=== PATIENT | female | born 1945 ===

== ENCOUNTER 2018-05-06 21:25 | Emergency (ER) | payer BC ==
--- NOTE | 2018-05-06 21:28 | UC ---
Skin Complaint HPI - HPI Summary HPI Summary: This AM her own cat bit her L hand after playing too aggressively. There was mild pain this AM but by the evening there was redness, pain at base of L thumb as well as swelling. - History of Current Complaint Chief Complaint: UCSkin Time Seen by Provider: 05/06/18 21:26 Stated Complaint: CAT BITE Hx Obtained From: Patient ?: No Onset/Duration: Sudden Onset Skin Exposure Onset/Duration: Hours Ago Onset Severity: Mild Current Severity: Moderate Location: Discrete Character: Swelling, Pain, Redness, Painful Aggravating Factor(s): Touch Alleviating Factor(s): Nothing - Allergy/Home Medications Allergies/Adverse Reactions: Allergies Allergy/AdvReac Type Severity Reaction Status Date / Time No Known Allergies Allergy Verified 05/06/18 21:36 PMH/Surg Hx/FS Hx/Imm Hx Previously Healthy: Yes - Surgical History Surgical History: None - Family History Known Family History: Positive: None - Social History Alcohol Use: None Substance Use Type: None Smoking Status (MU): Never Smoked Tobacco Review of Systems All Other Systems Reviewed And Are Negative: Yes Constitutional: Positive: Negative Skin: Positive: Other - redness Musculoskeletal: Positive: Arthralgia, Edema Physical Exam Triage Information Reviewed: Yes Appearance: Well-Appearing Neurological: Positive: Alert Skin: Positive: Significant Lesion(s) - puncture wound from cat bite at L base of thumb. Thenar swelling, redness, tenderness. SILO MAN intact, good ROM. Course/Dx - Course Course Of Treatment: Cat bite on L base of thumb/hand which is indication for antibx. Exam significant for swelling, tenderness, puncture wound erythema. No crush injury, no deep puncture wounds, not a late presentation. good vitals. - Differential Diagnoses - Skin Complaint Differential Diagnoses: Abscess, Allergic Reaction, Impetigo, Other - Diagnoses Provider Diagnosis: Animal bite, Pain of left thumb Discharge - Sign-Out/Discharge Documenting (check all that apply): Patient Departure All imaging exams completed and their final reports reviewed: No Studies - Discharge Plan Condition: Good Disposition: HOME Prescriptions: Amoxicillin/Clavulanate TAB* [Augmentin TAB 875*] 875 mg PO BID 7 Days #13 tab Patient Education Materials: Animal Bite (ED) Referrals: No Primary Care Phys,NOPCP [Primary Care Provider] - Additional Instructions: If not improving after antibiotics please follow up with your pcp. - Billing Disposition and Condition Condition: GOOD Disposition: Home
[2018-05-06] MEDS ORDERED: Amoxicillin/Clavulanate TAB* 875 MG PO ONE (21:36)
[2018-05-06 21:40] VITALS: BP 142/73
== END 2018-05-06 21:50 | disposition home or self-care (01) ==
LOC: UCEAST 21:25
DX: S61.052A Open bite of left thumb without damage to nail, initial encounter (principal); W55.01XA Bitten by cat, initial encounter; Y92.9 Unspecified place or not applicable
CPT/HCPCS: 99212; A9270-GY; G0463

== ENCOUNTER 2018-09-08 07:53 | Day surgery (SDC) | payer BC ==
[~2018-09-08 07:53] MED LIST: Acetaminophen TAB* 325 MG PO PRN; Buffered Lidocaine 1% SYRIN* 1 ML/SYRINGE INTRADERM ONE
[2018-09-08] MEDS ORDERED: Midazolam* 1 MG/ML 2 ML VIAL (2 MG) ONE (10:09)
[2018-09-08 10:46] VITALS: BP 118/68
--- NOTE | 2018-09-08 12:52 | OP ---
OPERATIVE NOTE: DATE OF OPERATION: 09/08/18 DATE OF : 41 SURGEON: Jared Hernandez M.D. PREOPERATIVE DIAGNOSIS: Cataract, right eye. POSTOPERATIVE DIAGNOSIS: Cataract, right eye. OPERATIVE PROCEDURE: Extracapsular cataract extraction with intraocular lens implant, right eye. DESCRIPTION OF PROCEDURE: The patient was brought to the operating room after being given 1/2% Alcai ne with epinephrine drops in the preoperative area. The eye was prepped and draped in the usual ster ile fashion. Sterile drape and eyelid speculum were placed. Again, topical 1/2% Alcaine with epinep hrine was given. A paracentesis incision was made at the 9 o'clock position with the No.75 blade. Cl ear cornea incision 2.2 x 2.2-mm was created at the 12 o'clock position starting at the anterior limb us using the 2.2-mm keratome. The anterior chamber was irrigated with 0.4 mL of 1% non-preservative intracameral lidocaine and filled with DisCoVisc. A capsulorrhexis was completed using the cystotome and the Utrata forceps. Hydrodissection was performed with balanced salt solution. The lens nucleu s was removed with the Phacoemulsification handpiece without incident. Cortex was removed with the ir rigation-aspiration handpiece. The capsular bag was re-inflated using DisCoVisc and an [id number] 23 imp lant was inserted with the shooter. The irrigation-aspiration handpiece was used to remove all residu al DisCoVisc. The eye was refilled with balanced salt solution and the wound checked and found to be watertight. Topical Maxitrol drops were given. [id number]/[facility] #: [id number]
[2018-09-08] MEDS ORDERED: Phenylephrine OPHTH SOL 2.5%* 2 ML ONE (14:02)
[2018-09-08] MEDS ORDERED: Proparacaine 0.5% OPHTH.SOL* 15 ML BTL ONE (14:02)
[2018-09-08] MEDS ORDERED: Povidone Iodine 5% OPTH* 30 ML BTL ONE (14:02)
[2018-09-08] MEDS ORDERED: Lidocaine 1%* 5 ML VIAL ONE (14:02)
[2018-09-08] MEDS ORDERED: acetaZOLAMIDE TAB* 250 MG ONE (14:02)
[2018-09-08] MEDS ORDERED: Cyclopentolate 1% OPTH.SOL* 2 ML BTL ONE (14:02)
[2018-09-08] MEDS ORDERED: Lidocaine 2% EPI 1:200000 MPF*10-20 ML VIAL ONE (14:02)
[2018-09-08] MEDS ORDERED: Neomycin/Polymy/Dex OPTH.SUSP* MAXITROL 0.1% 5 ML ONE (14:02)
[2018-09-08] MEDS ORDERED: Ketorolac 0.5% OPHTH (NF) 0.5 % 5 ML BTL ONE (14:02)
== END 2018-09-08 11:00 | disposition home or self-care (01) ==
LOC: OREAST 07:53
PROVIDERS: ATTEND Specialist
DX: Z01.818 Encounter for other preprocedural examination (principal); H25.813 Combined forms of age-related cataract, bilateral; H43.22 Crystalline deposits in vitreous body, left eye; M81.0 Age-related osteoporosis without current pathological fracture; M19.90 Unspecified osteoarthritis, unspecified site; E78.00 Pure hypercholesterolemia, unspecified; H25.13 Age-related nuclear cataract, bilateral; E78.2 Mixed hyperlipidemia; C44.222 Squamous cell carcinoma of skin of right ear and external auricular canal; E55.9 Vitamin D deficiency, unspecified; Z13.31 Encounter for screening for depression; Z68.27 Body mass index [BMI] 27.0-27.9, adult
CPT/HCPCS: A9270-GY; J2250; V2632

== ENCOUNTER 2018-09-15 10:35 | Day surgery (SDC) | payer BC ==
[~2018-09-15 10:35] MED LIST changes: +Cyclopentolate 1% OPTH.SOL* 2 ML BTL ONE; +Ketorolac 0.5% OPHTH (NF) 0.5 % 5 ML BTL ONE; +Lidocaine 1%* 5 ML VIAL ONE; +Lidocaine 2% EPI 1:200000 MPF*10-20 ML VIAL ONE; +Neomycin/Polymy/Dex OPTH.SUSP* MAXITROL 0.1% 5 ML ONE; +Phenylephrine OPHTH SOL 2.5%* 2 ML ONE; +Povidone Iodine 5% OPTH* 30 ML BTL ONE; +Proparacaine 0.5% OPHTH.SOL* 15 ML BTL ONE; +acetaZOLAMIDE TAB* 250 MG ONE
[2018-09-15] MEDS ORDERED: Midazolam* 1 MG/ML 2 ML VIAL (2 MG) ONE (13:32)
[2018-09-15 17:14] VITALS: BP 131/68
--- NOTE | 2018-09-15 20:49 | OP ---
DATE OF OPERATION: 09/15/18 [facility] DATE OF : 41 SURGEON: Jared Hernandez M.D. PREOPERATIVE DIAGNOSIS: Cataract, left eye. POSTOPERATIVE DIAGNOSIS: Cataract, left eye. OPERATIVE PROCEDURE: Extracapsular cataract extraction with intraocular lens implant, left eye. DESCRIPTION OF PROCEDURE: The patient was brought to the operating room after being given 1/2% Alcaine with epinephrine drops in the preoperative area. The eye was prepped and draped in the usual sterile fashion. Sterile drape and eyelid speculum were placed. Again, topical 1/2% Alcaine with epinephrine was given. A paracentesis incision was made at the 3 o'clock position with the No.75 blade. Clear cornea incision 2.2 x 2.2-mm was created at the 6 o'clock position starting at the anterior limbus using the 2.2-mm keratome. The anterior chamber was irrigated with 0.4 mL of 1% non-preservative intracameral lidocaine and filled with DisCoVisc. A capsulorrhexis was completed using the cystotome and the Utrata forceps. Hydrodissection was performed with balanced salt solution. The lens nucleus was removed with the Phacoemulsification handpiece without incident. Cortex was removed with the irrigation-aspiration handpiece. The capsular bag was re-inflated using DisCoVisc and an SN60WF 24.5 implant was inserted with the shooter. The irrigation-aspiration handpiece was used to remove all residual DisCoVisc. The eye was refilled with balanced salt solution and the wound checked and found to be watertight. Topical Maxitrol drops were given. [id number]/[facility] #: [id number] MTDD
== END 2018-09-15 14:50 | disposition home or self-care (01) ==
LOC: OREAST 10:35
PROVIDERS: ATTEND Specialist
DX: H25.812 Combined forms of age-related cataract, left eye (principal); H43.22 Crystalline deposits in vitreous body, left eye; M81.0 Age-related osteoporosis without current pathological fracture; M19.90 Unspecified osteoarthritis, unspecified site; E78.00 Pure hypercholesterolemia, unspecified
CPT/HCPCS: A9270-GY; J2250; V2632